=== PATIENT | female | born 1990 | race African-American/Black ===

== ENCOUNTER 2019-10-02 18:21 | Emergency (ER) | payer OTHER, SELFPAY ==
--- NOTE | ~2019-10-02 | CT_ITS ---
EXAMINATION: CT abdomen pelvis w con INDICATION: Abdominal pain TECHNIQUE: Computed tomographic images of the abdomen and pelvis were obtained after the administrati on of 100 cc of Omnipaque 350 intravenous contrast. The dose-length product (DLP) was 310.01 mGy-cm. Automated exposure control and iterative reconstruction technique were employed. COMPARISON: 06/30/2019 FINDINGS: The lung bases are clear. The heart size is normal. The liver, spleen, pancreas, gallbladde r, and adrenal glands are normal. The kidneys are unremarkable. There is circumferential wall thicken ing involving approximately 12 cm of the terminal ileum. There is distention of the terminal ileum pr oximal to the affected segment. There is also wall thickening of the cecum. The appendix is not ident ified. 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 Gas and stool are seen in the colon. No definite abscess is identified. No pathologically enlarged abdominal or pel leatha lymph nodes are identified. IMPRESSION: 1. Circumferential thickening of the terminal ileum and cecum, consistent with terminal ileitis and h istory of Crohn disease. 2. Dilated small bowel proximal to the affected segment of terminal ileum resulting in partial obstru ction. 3. 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 Reviewed, dictated and finalized at location A. IMPRESSION: 1. Circumferential thickening of the terminal ileum and cecum, consistent with terminal ileitis and history of Crohn disease. 2. Dilated small bowel proximal to the affected segment of terminal ileum resul ting in partial obstruction. 3. 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
--- NOTE | ~2019-10-02 | XR_ITS ---
EXAMINATION: XR abdomen NG/feed tube insert INDICATION: Nasogastric tube placement TECHNIQUE: Portable AP KUB-NG at 2307 hours COMPARISON: 01/29/2019 FINDINGS: The nasogastric tube is in the stomach. The proximal side port is near the gastroesophageal junction. IMPRESSION: 1. Nasogastric tube in the stomach with proximal side port at the gastroesophageal junction. Consider advancing 2 to 3 cm. Reviewed, dictated and finalized at location A. IMPRESSION: 1. Nasogastric tube in the stomach with proximal side port at the gastroesophag eal junction. Consider advancing 2 to 3 cm.
[2019-10-02 18:22] VITALS: BP 151/77; PULSE 112; RESP 18; TEMP 37.9; O2SAT 100
--- NOTE | 2019-10-02 18:28 | ED.ABDPAIN ---
HPI - Abdominal Pain General Chief Complaint: Abdominal Pain Stated Complaint: chrohns flare up Time Seen by Provider: 10/02/19 18:26 Source: patient Mode of arrival: ambulatory Limitations: no limitations History of Present Illness HPI narrative: The pt is a 29 y/o female who presents to the ED c/o lower ABD pain onset 3 days ago. Pt states that it feels similar to the pain she experienced with her bowel obstructions, but notes that she also thinks this could be a Crohn's flare-up. She notes that she takes Stelara for this, and has taken this without relief from pain. Pt notes that she did not take any medication for pain. Pt states that she sees a customer program specialist at the [facility], but has not been able to get through to them. Pt reports N/V and constipation, but denies diarrhea and fever. MD elicited complaint: abdominal pain Pertinent past history: other (Crohn's disease, bowel obstruction) Onset (ago): day(s) (3) Location: other (Lower) Severity: similar to previous episodes Relieving factors: nothing Associated symptoms: nausea, vomiting and constipation Related Data Home Medications Medication Instructions Recorded Confirmed sertraline [Zoloft] 100 mg PO DAILY 07/01/19 07/01/19 tramadol 50 mg PO Q6H PRN 10/02/19 Allergies Allergy/AdvReac Type Severity Reaction Status Date / Time adalimumab [From Humira] Allergy Hives Verified 10/02/19 18:48 Review of Systems Review of Systems: All systems reviewed & are unremarkable except as noted in HPI and below Constitutional: Constitutional: Denies fever(s) Gastrointestinal: Gastrointestinal: Reports abdominal pain (Lower), Reports constipation, Denies diarrhea, Reports nausea and Reports vomiting PMFSH Past Medical History Medical History Anemia Anxiety Asthma Back pain Bronchitis Crohn's disease Depression Eczema Pneumonia SBO (small bowel obstruction) UTI (urinary tract infection) Surgical History Surgical History History of hysterectomy Family History Family History Mother Asthma Sibling Asthma Father Diabetes mellitus Hypertension Social History Social History Smoking packs per day: 0.5 Smoking cigarettes per day: 10.0 Years smoked: 12 Smoking pack-years: 6.00 Smoking status: Former smoker Smokeless tobacco user: other Second hand tobacco smoke exposure: Yes Alcohol intake: current Drinks per week: 1 Substance use: never Substance use type: does not use Gender identity (if verbalized by the patient): Female Spiritual care concerns: No Agree to blood products: Yes Exam Narrative: Exam Narrative: APPEARANCE: No acute distress, nontoxic, resting in bed HEENT: Normocephalic, atraumatic, OMM RESPIRATORY: No respiratory distress, clear to auscultation bilaterally with no rhonchi wheezing or rales CARDIOVASCULAR: RRR s murmur ABDOMINAL: Soft, nondistended, diffusely tender to palpation, no rebound or guarding MUSCULOSKELETAl: Moves all extremities. No clubbing, cyanosis or edema. NEURO: Awake and alert. Following commands, speech normal, no focal deficits SKIN:: Warm, dry. Normal Color PSYCHIATRIC: Normal affect/mood Course Course Emergency Course: Discussed with patient need for admission. The patient receives all of her care at the [facility] and is requesting transfer Cussed with patient plan for transfer at this time Following x-ray following NG placement had NG advanced 3 cm Consultations Consultation #1: Discussed case with Dr. Zapata. Requests Zosyn be started and will accept transfer. Date: 10/02/19 Time: 22:45 Vital Signs Vital signs: Vital Signs Temperature 100.3 F H 10/02/19 18:22 Pulse Rate 112 H 10/02/19 18:22 Respiratory Rate 18 10/02/19 18:22 Blood Pressure 151/77 H 10/02/19 18:22 Pul
[2019-10-02] MEDS: LACTATED RINGERS 1,000 ML 999 ML IV CONT (19:18)
[2019-10-02] MEDS: ONDANSETRON INJ 4 MG/2 ML VIAL IV PUSH (19:19)
[2019-10-02] MEDS: MORPHINE SULFATE 4 MG/ML INJ IV PUSH ×2 (19:19→20:30)
[2019-10-02 19:21] LABS: Basophils Percent Auto 0.1 % (0.2-1.2); Hematocrit 32.9 % (37.0-47.0); Hemoglobin 10.5 g/dL (12.0-15.0); Immature Granulocyte Absolute 0.02 K/mm3 (0.00-0.031); Immature Granulocyte Percent A 0.2 % (0-0.5); Lymphocytes Absolute Auto 1.11 K/mm3 (0.9-3.2); Lymphocytes Percent Auto 13.1 % (18.3-44.2); Mean Corpuscular HGB Conc 31.9 g/dl (32-36); Mean Corpuscular Hemoglobin 26.7 pg (26-34); Mean Corpuscular Volume 83.7 fl (80-100); Monocytes Absolute Auto 0.2 K/mm3 (0.1-0.6); Monocytes Percent Auto 2.7 % (2.6-8.5); Neutrophils Absolute Auto 7.1 K/mm3 (1.3-6.7); Neutrophils Percent Auto 83.9 % (45.5-73.1); Platelet Count Result 433 k/mm3 (150-375); Red Blood Count 3.93 M/mm3 (4.2-5.4); Red Cell Distribution Width 14.2 % (11.5-14.5); White Blood Count 8.5 K/mm3 (4.5-10.0)
[2019-10-02 19:26] LABS: Add Urine Microscopic? YES; Appearance Urine Clear (Clear); Bacteria Urine Trace /hpf; Bilirubin Urine Negative (Negative); Blood Urine Negative (Negative); Color Urine Yellow (Yellow); Glucose Urine UA Negative (Negative); Ketones Urine Negative (Negative); Leukocyte Esterase Ur Negative LEU/UL (Negative); Mucus Urine Rare /lpf; Nitrate Urine Negative (Negative); Protein Urine Negative (Negative); Specific Grav Ur 1.016 (1.001-1.035); Squamous Epithelial Cell Urine Rare /hpf (Few); WBC Urine 0-3 /hpf
[2019-10-02 19:35] LABS: Lactic Acid Reflex 1.9 mmol/L (0.7-2.1)
[2019-10-02 19:36] LABS: Alanine Aminotransferase 10 U/L (4-35); Alkaline Phosphatase 72 U/L (38-126); Aspartate Amino Transferase 18 U/L (14-36); Bilirubin,Total 0.4 mg/dL (0.2-1.3); Blood Urea Nitrogen 8 mg/dL (7-17); Calcium 9.4 mg/dL (8.4-10.2); Carbon Dioxide 28 mmol/L (22-30); Chloride 100 mmol/L (98-107); Estimated CRCL calculation 105 ml/min; Estimated Glomerular Filt Rate > 60; Glucose 118 mg/dL (65-105); Potassium 2.9 mmol/L (3.4-5.0); Sodium 136 mmol/L (137-145)
[2019-10-02 19:40] LABS: Lipase 27 U/L (23-300)
[2019-10-02 20:48] VITALS: BP 149/89; PULSE 98; RESP 16; TEMP 37.1; O2SAT 99
[2019-10-02 21:31] VITALS: BP 115/68; PULSE 101; RESP 13; O2SAT 99
[2019-10-02] MEDS: methylPREDNISolone SOD SUCC 125 MG VIAL IV PUSH (21:34)
[2019-10-02 22:27] VITALS: BP 118/73; PULSE 102; RESP 19; O2SAT 100
[2019-10-02] MEDS: SODIUM CHLORIDE 0.9% IV 1,000 ML 999 ML IV CONT (23:26)
[2019-10-02 23:39] VITALS: BP 124/88; PULSE 101; RESP 18; O2SAT 100
[2019-10-03] MEDS: LACTATED RINGERS 1,000 ML 125 ML IV CONT (00:43)
[2019-10-03 00:52] VITALS: BP 134/85; PULSE 98; RESP 19; TEMP 36.8; O2SAT 100
--- NOTE | 2019-10-03 00:53 | PC.NURSE ---
PT WILL BE GOING TO [facility], REPORT CALLED TO QUIRINO SOUSA. PT GOING TO BED 641-2. [facility] CALLED FOR TRANSPORT STATED ETA WAS 0110.
--- NOTE | 2019-10-03 01:34 | PC.NURSE ---
0030: Called [facility] to transport to [facility]...eta 0110. Called for status: ETA 0200 Due to call volume exceeding availability.
[2019-10-03] MEDS: MORPHINE SULFATE 2 MG/ML INJ IV PUSH (01:39)
[2019-10-03 01:40] VITALS: BP 119/79; PULSE 83; RESP 18; O2SAT 100
[2019-10-03 02:05] VITALS: BP 111/71; PULSE 81; RESP 19; O2SAT 100
== END 2019-10-03 02:20 ==
PROVIDERS: Emergency Provider Emergency Medicine
DX: K50.012 Crohn's disease of small intestine with intestinal obstruction (principal); K50.013 Crohn's disease of small intestine with fistula; J45.909 Unspecified asthma, uncomplicated; F41.9 Anxiety disorder, unspecified; F32.9 Major depressive disorder, single episode, unspecified; Z87.891 Personal history of nicotine dependence
CPT/HCPCS: 36415; 74177; 80053; 81001; 81025; 83605; 83690; 85025; 87040; 96365; 96366; 96368; 96375; 96376; 99285; J2270; J2405; J2543; J2930; J3480; J7030; J7120; Q9967

== ENCOUNTER 2020-03-21 18:33 | Emergency (ER) | payer OTHER, SELFPAY ==
[2020-03-21 18:34] VITALS: BP 134/89; PULSE 96; RESP 18; TEMP 36.6; O2SAT 97
[2020-03-21 18:53] LABS: Basophils Percent Auto 0.3 % (0.2-1.2); Eosinophils Absolute Auto 0.1 K/mm3 (0-0.3); Eosinophils Percent Auto 1.2 % (0-4.4); Hematocrit 35.9 % (37.0-47.0); Hemoglobin 11.7 g/dL (12.0-15.0); Immature Granulocyte Absolute 0.02 K/mm3 (0.00-0.031); Immature Granulocyte Percent A 0.3 % (0-0.5); Mean Corpuscular HGB Conc 32.6 g/dl (32-36); Mean Corpuscular Hemoglobin 29.3 pg (26-34); Mean Platelet Volume 9.4 fl (7.4-10.4); Monocytes Absolute Auto 0.4 K/mm3 (0.1-0.6); Monocytes Percent Auto 5.3 % (2.6-8.5); Neutrophils Absolute Auto 4.3 K/mm3 (1.3-6.7); Neutrophils Percent Auto 57.9 % (45.5-73.1); Platelet Count Result 300 k/mm3 (150-375); Red Blood Count 3.99 M/mm3 (4.2-5.4); Red Cell Distribution Width 15.1 % (11.5-14.5); White Blood Count 7.4 K/mm3 (4.5-10.0)
[2020-03-21 18:55] LABS: Add Urine Microscopic? YES; Appearance Urine Clear (Clear); Bilirubin Urine Negative (Negative); Blood Urine Negative (Negative); Color Urine Yellow (Yellow); Glucose Urine UA Negative (Negative); Ketones Urine Negative (Negative); Leukocyte Esterase Ur Negative LEU/UL (Negative); Mucus Urine Rare /lpf; Nitrate Urine Negative (Negative); Protein Urine Negative (Negative); RBC Urine 0-2 /hpf (0-2); Specific Grav Ur 1.016 (1.001-1.035); Squamous Epithelial Cell Urine Many /hpf (Few); WBC Urine 0-3 /hpf
[2020-03-21 19:06] LABS: Alanine Aminotransferase 17 U/L (4-35); Albumin Level 4.4 g/dL (3.5-5.1); Alkaline Phosphatase 70 U/L (38-126); Anion Gap 6 mmol/L (8-16); Aspartate Amino Transferase 21 U/L (14-36); Bilirubin,Total 0.6 mg/dL (0.2-1.3); Blood Urea Nitrogen 9 mg/dL (7-17); Calcium 9.1 mg/dL (8.4-10.2); Carbon Dioxide 26 mmol/L (22-30); Chloride 104 mmol/L (98-107); Estimated CRCL calculation 92 ml/min; Estimated Glomerular Filt Rate > 60; Glucose 96 mg/dL (65-105); Lipase 162 U/L (23-300); Potassium 4.2 mmol/L (3.4-5.0); Sodium 136 mmol/L (137-145)
--- NOTE | 2020-03-21 19:48 | ED.ABDPAIN ---
HPI - Abdominal Pain General Chief Complaint: Abdominal Pain Stated Complaint: morris flare Time Seen by Provider: 03/21/20 19:26 Source: patient and old records reviewed Mode of arrival: ambulatory Limitations: no limitations History of Present Illness HPI narrative: Patient is a 30-year-old female who presents with history of Crohn's believing that she is developing a flare over the last couple of days patient notes some mild discomfort in the left lower abdomen patient denies rectal bleeding or melena or change in her bowel habits patient has had some slight nausea but has been taking Zofran with relief patient due to backorder on her Stelara has had to wait longer periods for her medication. Patient is managed at the [facility]. patient notes that she typically is managed with tramadol during flares. Patient notes that her pain is more minimal in nature at this time. Patient otherwise resting comfortably in the room upon arrival. Patient also notes that she began taking steroids today. Patient feels comfortable with her current level of pain and does not wish for CAT scan imaging at this time as it is not nearly as intense as when she has had bowel obstructions or other complications. Patient notes that she is scheduled to get her Stelara injection this week Related Data Home Medications Medication Instructions Recorded Confirmed dicyclomine 20 mg PO DAILY 03/21/20 03/21/20 ondansetron HCl [Zofran] 4 mg PO Q6H PRN 03/21/20 03/21/20 pantoprazole [Protonix] 40 mg PO QAM 03/21/20 03/21/20 Allergies Allergy/AdvReac Type Severity Reaction Status Date / Time adalimumab [From Humira] Allergy Hives Verified 03/21/20 19:33 Review of Systems Review of Systems: All systems reviewed & are unremarkable except as noted in HPI and below PMFSH Past Medical History Medical History Anemia Anxiety Asthma Back pain Bronchitis Crohn's disease Depression Eczema Pneumonia SBO (small bowel obstruction) UTI (urinary tract infection) Surgical History Surgical History History of hysterectomy Social History Social History Smoking packs per day: 0.5 Smoking cigarettes per day: 10.0 Years smoked: 12 Smoking pack-years: 6.00 Smoking status: Former smoker Smokeless tobacco user: other Second hand tobacco smoke exposure: Yes Alcohol intake: current Drinks per week: 1 Substance use: never Substance use type: does not use Gender identity (if verbalized by the patient): Female Spiritual care concerns: No Agree to blood products: Yes Exam Narrative: Exam Narrative: GENERAL: Well-appearing, well-nourished, and in no acute distress. HEAD: Normocephalic, atraumatic. EYES: PERRLA and EOMI. ENT: Nares clear, no rhinorrhea or epistaxis. Mucous membranes moist. CHEST: Clear to auscultation. No respiratory distress. No wheezes rales or rhonchi HEART: Regular rate and rhythm. No murmur heard. Normal peripheral pulses. ABDOMEN: Soft, tenderness in the left lower abdomen no rebound or guarding nondistended, EXTREMITIES: Normal range of motion. No edema. SKIN: Warm, dry, no rash. NEURO: No focal deficits. Alert and oriented x3. PSYCH: Normal mood and affect. Course Course Emergency Course: Patient in the room at this time aware of case findings treatment plan and diagnosis agreeing to follow-up with her specialist as instructed. Patient given pain medication in the emergency department and will be discharged home for plan follow-up on an outpatient basis. Patient without high risk changes in her blood work. Patient preferred to not have CAT scan imaging today and notes that she feels comfortable with this and will return for reevaluation of symptoms worsen. Vital Signs Vital signs: Vital Signs Temperature 98 F 03/21/20 18:34 Pulse Rate 9
[2020-03-21] MEDS: traMADol HCL 50 MG TABLET 100 MG PO (19:55)
[2020-03-21 20:41] VITALS: BP 148/77; PULSE 92; RESP 16; O2SAT 99
== END 2020-03-21 20:42 | disposition home or self-care (01) ==
LOC: ANHED 20:02
PROVIDERS: Family Medicine; Emergency Provider Emergency Medicine
DX: K50.90 Crohn's disease, unspecified, without complications (principal); J45.909 Unspecified asthma, uncomplicated; D64.9 Anemia, unspecified; Z87.891 Personal history of nicotine dependence
CPT/HCPCS: 36415; 80053; 81001; 81025; 83690; 85025; 99283; A9270